=== PATIENT | female | born 1940 | race African-American/Black ===

== ENCOUNTER → 2016-08-18 | Outpatient (CLI) | payer OTHER, BC ==
[~2016-08-18] VITALS: Ht 167.6 cm; Wt 82.4 kg
[~2016-08-18] MED LIST: ADVAIR 100-501 EACH INH; ALEVE220 M1 PO; ALPRAZOLAM 0.50.5 MG PO; ASPIRIN325; BYSTOLIC 5 MG5 M1 PO; CRESTOR10 MG PO; DESYREL50 MG PO; DYRENIUM100 MG PO; FENTANYL 1100 MCG/HR TP; FENTANYL 1100 MCG/HR TRANSDERM; FENTANYL PA50 MCG/HR TRANSDERM; GLUCOTROL XL10 MG PO; HYDROCODON-ACE1 EAC5 PO; HYDROCODON-ACE1 EAC7 PO; LANOXIN 0.250.25 M1 PO; LANTUS SC; METHADONE HCL 110 M1 PO; NORCO 10-325 T1 EACH PO; NOVOLOG MI100 UNIT/2 SQ; OPANA ER30 MG PO; OPANA10 MG PO; OXYCODONE-ACET1 EAC2 PO; OXYCODONE-ACET1 EACH PO; OXYCONTIN30 MG PO; OXYCONTIN40 MG PO; PERCOCET 5-3251 EACH PO; PLAVIX 75 MG TA75 MG PO; PRINZIDE 20-121 EACH PO; SINGULAIR 10 MG10 M1 PO; TOPROL XL50 MG PO; VENTOLIN HFA INH8 GM INH; VERAPAMIL HCL240 MG PO; VITAMIN D-32000 UNIT PO; ZOLOFT100 MG
--- NOTE | ~2016-08-18 | HPC ---
[facility] [address] [place] [address] PAIN MANAGEMENT CONSULTATION Name: SURESH MORALES Maggi Room #: EDGARDO WILMER Ragland#: [id number] Admission: 08/18/16 Attend Phys: Josue Caruso MD Discharge: Date of : 38 Report #: [id number] THIS REPORT FOR: //name// CC: Magan Caruso DATE OF SERVICE: 08/18/2016 Followup visit for low back pain with radiculopathy, right L2-L3 distribution, chronic low back pain. I am seeing the patient today back for medication renewal as well as an epidural injection. She was last seen in March. She is 2 months late for medication. Lots of questions asked today about where her medication reduction may have occurred in order to get her through 150 days with 90 days of medication. She is on fentanyl patches. Answers were really not entirely satisfactory. Her reports that patches may even come off a little bit early. Seems clear to me that the fentanyl patches are not being used as ordered. Otherwise, we would have seen her in June. I am going to reduce her medication by 50% today. I have also ordered urine drug analysis. She reports her pain is 10/10. I have cared for her for over 10 years. This is the first time that we had discrepancy in timing of dose. She is 76 now, claims that she is more forgetful. She and her live independently in their own home, they get out for meals and do other things, but I am concerned about these medication changes. The patient suffered chronically with depression and anxiety. She lost her child to cancer years back. She is on a polypharmacy regimen, which includes anxiolytics and antidepressants. We reviewed these medicines. She is also diabetic. MEDICATIONS: All medications were reviewed and reconciled in electronic medical record. PHYSICAL EXAMINATION: GENERAL: Her affect is pleasant, a little bit depressed. VITAL SIGNS: Blood pressure is 100/63, heart rate 65, respirations 16. BMI is 29.3. She is able to move from sitting to standing position, ambulates with a cane. She has limited range of motion of the lumbar spine. She has tenderness across the lumbosacral segment. She has pain that radiates in the right groin with straight leg raising. Pain follows in L2-L3 distribution. Previous x-rays have been reviewed from injections performed in March. It may be that injection was helpful, although I cannot get really good history about how helpful that may be one of the reasons that she did not use as much [facility] [address] [place] [address] PAIN MANAGEMENT CONSULTATION Name: SURESH MORALES Room #: REG CHASEPushpa Ragland#: [id number] Admission: 08/18/16 Attend Phys: Josue Caruso MD Discharge: Date of : 38 Report #: [id number] pain medication over the first several months. IMPRESSION: 1. Chronic low back pain with radiculopathy. 2. Insulin-dependent diabetes. 3. Anxiety and depression. 4. Management of high risk medication. PLAN: 1. I renewed her fentanyl patch at 50 mcg down from 100. I will see her back in 2 months. 2. Urine drug analysis. 3. Right L2-L3 transforaminal epidural injection under fluoroscopic guidance. PROCEDURE: She was taken to the fluoroscopic suite for procedure, placed prone, skin prepped with ChloraPrep. Skin anesthetized over the L2-L3 interspace. A 20-gauge Tuohy epidural needle advanced in the epidural space with loss of resistance. No blood or CSF aspirated. A 1 mL of Omnipaque injected. Excellent spread of dye observed in the epidural space followed by 3 mL of 0.5% lidocaine mixed with 80 mg triamcinolone. She tolerated the procedure well and was observed for 45 minutes and discharged. Followup visit planned in 2 months. By: [id number] Josue Caruso MD /nt
[2016-08-18 12:59] VITALS: BP 101/63
== END ==
LOC: PAIN 07:10
DX: M54.16 Radiculopathy, lumbar region (principal); E11.9 Type 2 diabetes mellitus without complications; F32.9 Major depressive disorder, single episode, unspecified; F41.9 Anxiety disorder, unspecified; Z87.891 Personal history of nicotine dependence

== ENCOUNTER → 2017-07-17 | Outpatient (CLI) | payer OTHER, BC ==
[~2017-07-17] VITALS: Ht 167.6 cm; Wt 82.4 kg
[~2017-07-17] MED LIST changes: +FENTANYL PATCH75 MCG TRANSDERM; +GABAPENTIN100 MG PO; +NEURONTIN 300300 M1 PO
--- NOTE | ~2017-07-17 | HPC ---
[facility] [place] [address] PAIN MANAGEMENT CONSULTATION Name: SURESH MORALES Maggi Room #: EDGARDO WILMER Ragland#: [id number] Admission: 07/17/17 Attend Phys: Josue Caruso MD Discharge: Date of : 38 Report #: [id number] THIS REPORT FOR: //name// CC: Magan Caruso DATE OF SERVICE: 07/17/2017 Followup visit for chronic back pain with radiculopathy. Followup visit for my longstanding patient, who is here today for renewal of pain medication. A buccal drug screen will be performed as it has not been performed in some time. She continues to score her pain high despite all of our efforts. She has had multiple injections, has even had a spinal cord stimulator. She is now on fentanyl 75 mcg and hydrocodone 10/325 3 times daily. Without these medications, I do not believe she will be able to function at all. Her pain impact scores continue to remain high. She scored her impact as 47/70 today and her obtainable functional goals are to be able to continue walking for exercise and doing housework. Review of PQRS requirements showed that she does have a history of osteoarthritis involving several joints. Medication helps with those conditions and also is aided by the medication that I provide her. Her BMI is 29.3 with vital signs of blood pressure 113/64, heart rate 73. She has not been on under treatment for hypertension. She uses a cane and is a fall risk due to dizziness. We have talked about being cautious getting up and down. She is on no blood thinners at this time. She is low risk for any sort of addiction by our risk assessment tool. IMPRESSION: 1. Chronic intractable low back pain with radiculopathy. 2. Management of high risk medications. PLAN: 1. Increase Duragesic to 75 mcg q. 72 hours. 2. Hydrocodone 10/325, 3 tablets daily. 3. Continue gabapentin 300 mg t.i.d. 4. Follow up in the Pain Management Clinic in 3 months. <ELECTRONICALLY SIGNED> By: Josue Caruso MD 08/14/17 1408 1623 10 Josue Caruso MD /nt
[2017-07-17 13:23] VITALS: BP 113/64
== END ==
LOC: PAIN 07:19
DX: M54.16 Radiculopathy, lumbar region (principal); Z79.899 Other long term (current) drug therapy

== ENCOUNTER → 2018-04-05 | Outpatient (CLI) | payer OTHER, BC ==
[~2018-04-05] VITALS: Ht 167.6 cm; Wt 78.6 kg
[~2018-04-05] MED LIST changes: +CELEBREX 200 M200 MG PO
--- NOTE | ~2018-04-05 | HPC ---
[facility] [place] [address] [place] [address] PAIN MANAGEMENT CONSULTATION Name: SURESH MORALES Maggi Room #: REG Pushpa MYuly.#: [id number] Admission: 04/05/18 Attend Phys: Josue Caruso MD Discharge: Date of : 39 Report #: [id number] THIS REPORT FOR: //name// CC: KENDRA Solano DO Physician staff Josue Caruso DATE OF SERVICE: 04/05/2018 Followup visit for chronic pain. Followup visit for the patient who continues to complain of daily pain in the range of 10/10. Her , always steadfast at her side, reports that she complains every day. The pain is lumbosacral without radiculopathy. She has had a number of treatments, injections, spinal cord stimulator and has been maintained on strong opioid medication along with some adjuvant medications for a number of years. We decided today to review those medicines, consider if there are any additions, subtractions or changes to make. All medications were reviewed and reconciled. PQRS reveals a blood pressure of 145/66, heart rate 72, respirations 16. Her BMI is 28.0. She does not use tobacco or alcohol. She does not have a blood thinner. She is on medication for elevated blood pressure. She has completed an opioid agreement and is at low risk for addiction. She uses her medications carefully and under terms of our agreement safeguarding it. She is not a fall risk and has not fallen over the course of the last 3 months, but she does need some help in standing. She does have osteoarthritis primarily in the shoulders, hips and knees. PAST MEDICAL HISTORY: Remarkable for lumbar surgery in 11/2003 and 2005, pacemaker placement, insulin-dependent diabetes, longstanding; GERD, depression, anxiety, sick sinus syndrome and coronary artery disease with stents. PHYSICAL EXAMINATION: She is pleasant, alert and oriented with mild depression. Blood pressure is noted. Weight is noted. She moves independently from sitting to standing position, walks with a waddling gait. She does not appear to be at risk of falling. She has limited range of motion in flexion, extension without complaints of pain. She has diffuse tenderness across the lumbosacral segment. It is bilateral. It ranges really from one sacroiliac joint to the other all the way across the lumbosacral region. 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 IMPRESSION: [facility] [address] [place] [address] PAIN MANAGEMENT CONSULTATION Name: SURESH MORALES Maggi Room #: REG CLI Obie#: [id number] Admission: 04/05/18 Attend Phys: Josue Caruso MD Discharge: Date of : 39 Report #: [id number] 1. Chronic intractable low back pain with symptomatic radiculopathy and lumbosacral pain. Her radiculopathy has recently been improved. 2. Management of high risk medication. PLAN: 1. Addition of celecoxib 200 mg once a day. Risks and benefits were reviewed. 2. Return if a caudal epidural injection some time before [place]. 3. Follow up in the pain clinic in 3 months for medication. Terms of our opioid agreement were reviewed. By: [id number] Josue Caruso MD /nt
[2018-04-05 14:39] VITALS: BP 145/66
== END ==
LOC: PAIN 14:06
DX: M54.16 Radiculopathy, lumbar region (principal); Z79.899 Other long term (current) drug therapy

== ENCOUNTER → 2018-05-03 | Outpatient (CLI) | payer OTHER, BC ==
[~2018-05-03] VITALS: Ht 167.6 cm; Wt 78.3 kg
[2018-05-03 14:04] VITALS: BP 141/65
--- NOTE | 2018-05-03 14:11 | NUR ---
Pain Clinic Assessment: 1. History of Osteoarthritis: YES History of Rheumatoid Arthritis: NO 2. Height: 5 ft. 6 in. 167.6 cm. Weight: 172.6 lb. oz. 78.291 kg. Patient's BMI: 27.9 3. Vital Signs: BP: 141/65 Pulse: 72 Resp: 16 Temp: 02 Sat: 97 ECG Mon: 4. Pain Intensity: 10 5. Fall Risk: Dizziness: N Needs help standing or walking: Y Fallen in the last 3 months: N Fall risk comments: 6. Patient on Blood Thinner: None 7. History of Hypertension: N 8. Opioid Therapy greater than 6 weeks: Y Opiate Contract Signed: 03/24/16 9. Risk Assessment Tool Provided: 1-LOW RISK 10. Functional Assessment Tool: 11. Recreational Drug Use: Never Drug Type: Tobacco Use: Former Smoker Tobacco Type: Amount or Packs/day: How Many Years: Alcohol Use: No Frequency: Quant:
--- NOTE | 2018-05-09 11:18 | HPC ---
[facility] [place] [address] [place] [address] PAIN MANAGEMENT CONSULTATION Name: SURESH MORALES Maggi Room #: REG WILMER Fraser.#: [id number] Admission: 05/03/18 Attend Phys: Josue Caruso MD Discharge: Date of : 39 Report #: [id number] THIS REPORT FOR: //name// CC: KENDRA FRAIRE Physician staff Josue Caruso DATE OF SERVICE: 05/03/2018 Followup visit for post-laminectomy syndrome, chronic low back pain with radiculopathy. The patient is here today for a caudal epidural injection. She was seen very recently on 04/05/2018 for an extended visit. We discussed other options for treatment. She has had 2 previous back surgeries in 2003 and 2005. She has a number of other comorbidities including coronary artery disease with stents, sick sinus syndrome, insulin-dependent diabetes and longstanding depression and anxiety. We have treated with medications, which are less and less effective. She reports that her pain continues to be severe, is mostly in the lumbosacral region without radiculopathy, but it is in the area of her previous surgeries. In the past, we have tried some caudal injections. We discussed that as an option for treatment at her last visit, but were unable to proceed with the injection without a preauthorization. I added some Celebrex for her regimen of medications and she is tolerating that so far, but pain continues to be fairly severe. She is grateful for the opportunity to try an epidural injection today. PQRS was reviewed less than 1 month ago. There have been no significant changes. PHYSICAL EXAMINATION: Her blood pressure is 141/65, heart rate 72, respirations 16. BMI 27. She needs some help standing and walking, but has not fallen in the last 3 months. She scores her pain as a 10/10. Pain is across the lumbosacral segment with localized tenderness. She has tenderness in both sacroiliac joints and denies numbness or weakness in the lower extremities at this time. IMPRESSION: Post-laminectomy syndrome with radiculopathy and lumbosacral pain. Some improvement in radiculopathy, but persistence of lumbosacral discomfort. PROCEDURE: Caudal epidural injection under fluoroscopic guidance. [facility] [address] [place] [address] PAIN MANAGEMENT CONSULTATION Name: SURESH MORALES Maggi Room #: [facility].#: [id number] Admission: 05/03/18 Attend Phys: Josue Caruso MD Discharge: Date of : 39 Report #: [id number] PROCEDURE: She was taken to fluoroscopic suite. She was placed prone. Skin was prepped with ChloraPrep. Skin was anesthetized over the sacral hiatus. Using biplanar fluoroscopic views, I gently advanced 22-guage spinal Tuohy epidural needle into the canal and a 1 mL of Omnipaque demonstrated an excellent epidurogram. It was then followed by 15 mL of 0.5% lidocaine mixed with 80 mg triamcinolone. She tolerated the procedure well, was observed for 45 minutes and discharged. She was told to watch carefully for her blood sugars may elevate over the next few days. Repeat injections will depend on her response to this injection. <ELECTRONICALLY SIGNED> By: Josue Caruso MD 05/09/18 1118 1133 2242 Josue Caruso MD /nt
== END | disposition home or self-care (01) ==
LOC: PAIN 07:47
DX: M54.17 Radiculopathy, lumbosacral region (principal); M96.1 Postlaminectomy syndrome, not elsewhere classified; G89.29 Other chronic pain; I25.10 Atherosclerotic heart disease of native coronary artery without angina pectoris; E11.9 Type 2 diabetes mellitus without complications; F32.9 Major depressive disorder, single episode, unspecified; F41.9 Anxiety disorder, unspecified; I49.5 Sick sinus syndrome; Z79.4 Long term (current) use of insulin; Z79.899 Other long term (current) drug therapy; Z98.890 Other specified postprocedural states; Z87.891 Personal history of nicotine dependence; Z79.82 Long term (current) use of aspirin; Z88.6 Allergy status to analgesic agent

== ENCOUNTER → 2018-06-21 | Outpatient (CLI) | payer OTHER, BC ==
[~2018-06-21] VITALS: Ht 167.6 cm; Wt 74.5 kg
[~2018-06-21] MED LIST changes: +ATORVASTATIN CA40 MG PO; -DESYREL50 MG PO; +HUMALOG100 UNIT/1 SUBQ; +LIPITOR10 MG PO; -NOVOLOG MI100 UNIT/2 SQ; +PACERONE 200 M200 M1 PO; +SERTRALINE HCL50 MG PO; +TRAZODONE HCL100 MG PO
[2018-06-21 15:06] VITALS: BP 152/64
--- NOTE | 2018-06-21 15:18 | NUR ---
Pain Clinic Assessment: 1. History of Osteoarthritis: YES History of Rheumatoid Arthritis: NO 2. Height: 5 ft. 6 in. 167.6 cm. Weight: 164.2 lb. oz. 74.481 kg. Patient's BMI: 26.5 3. Vital Signs: BP: 152/64 Pulse: 57 Resp: 16 Temp: 02 Sat: 95 ECG Mon: 4. Pain Intensity: 8-9 5. Fall Risk: Dizziness: N Needs help standing or walking: Y Fallen in the last 3 months: N Fall risk comments: 6. Patient on Blood Thinner: None 7. History of Hypertension: N 8. Opioid Therapy greater than 6 weeks: Y Opiate Contract Signed: 03/24/16 9. Risk Assessment Tool Provided: 1-LOW RISK 10. Functional Assessment Tool: 11. Recreational Drug Use: Never Drug Type: Tobacco Use: Former Smoker Tobacco Type: Amount or Packs/day: How Many Years: Alcohol Use: No Frequency: Quant:
--- NOTE | 2018-06-22 08:23 | HPC ---
[facility] [address] [place] [address] PAIN MANAGEMENT CONSULTATION Name: SURESH MORALES Maggi Room #: REG WILMER Ragland#: [id number] Admission: 06/21/18 Attend Phys: Irina Charles Discharge: Date of : 38 Report #: [id number] THIS REPORT FOR: //name// CC: Irina [facility] Physician staff DATE OF SERVICE: 06/21/2018 CHIEF COMPLAINT: Chronic back pain, lumbosacral pain without radiculopathy. HISTORY OF PRESENT ILLNESS: The patient returns to the pain clinic today for a refill of her medications. She tells me that she has been hospitalized at for an elevated blood sugar of over 1000. She passed out around 05/28/2018. Her found her and she was taken at and her blood sugar was 1000. She was admitted to ICU, intubated for several days, then went to the Step-Down Unit there for several days, they have changed significant amount of her medications and she was able to go home. She tells me that she is doing better. She has been off her fentanyl patches that we are giving her. They are working on decreasing her benzodiazepine that is prescribed by another doctor. She continues to take her hydrocodone 10/325. She tells me that she has tailbone, low back pain, rating at 8-9 today. It is worse when she is doing housework or lifting, worse actually at night also, but things have stabilized as far as her blood sugars and she feels like she is doing better than she was. She had a caudal injection in April from Dr. Josue Caruso and she found that to be helpful at that time. The patient's is present with her today for this visit and she would like a refill of her hydrocodone only. ALLERGIES: SHELLFISH AND CODEINE. CURRENT LIST OF MEDICATIONS: Hydrocodone 10/325 three times a day, Lipitor 10 mg at bedtime, Lipitor 40 mg at bedtime, amiodarone 200 mg daily, Ventolin inhaler as needed, Advair inhaler daily, Toprol 50 mg daily, Singulair 10 mg daily, Zoloft 50 mg daily, alprazolam 0.25 at bedtime, vitamin D3 daily, aspirin 325 mg daily, Lantus insulin 25 units at bedtime, Humalog 3 units before meals, trazodone 100 mg at bedtime. PQRS: 1. She has a history of osteoarthritis and denies rheumatoid arthritis. 2. Height is 5 feet 6 inches, weight is 164, BMI is 26.5. 3. Vital signs: Blood pressure 152/64, pulse is 57, respirations 16, oxygen sat is 95%. 4. Pain score is 8-9/10. 5. Fall risk: Denies dizziness, does not need help walking or standing, uses a cane. She has not fallen in the last 3 months. 6. Denies blood thinners. She takes medicines for hypertension. [address] [address] PAIN MANAGEMENT CONSULTATION Name: SURESH MORALES Maggi Room #: EDGARDO Ragland#: [id number] Admission: 06/21/18 Attend Phys: Irina Charles Discharge: Date of : 39 Report #: [id number] 7. Opioid therapy is greater than 6 weeks, therefore, an opioid signed contract is on the chart. 8. Risk assessment tool is low. Her functional assessment is 47/70. 9. Recreational drug use, she denies. She is a former smoker and does not drink alcohol. We did check the prescription monitoring system. The patient is filling appropriately from her medications. There is a recent drug screen on the chart as well. PHYSICAL EXAMINATION: GENERAL: This is a well-developed, well-nourished black female who appears her stated age. She is alert and orientated and her affect is appropriate. HEENT: Normocephalic, atraumatic. Extraocular eye muscles are intact. Mucous membranes are moist. Her hearing is adequate. MUSCULOSKELETAL: The patient moves independently from sitting to standing, does use a cane and walks with a slightly antalgic gait. She has tenderness across her lumbosacral area. Lower extremity muscle strength judged to be 5/5 in all major muscle groups. ASSESSMENT: 1. Chronic intractable low back pain with symptomatic lumbar radiculopathy. 2. Lumbosacral pain. 3. Management of high risk medications. We reviewed the fact that opiate medications are being used to provide analgesia adequate to support activities of daily living, not attempting to achieve a specific pain score on the 0-10 Visual Analog Scale. The current opiate medications are providing sufficient analgesia to allow the patient to participate in activities of daily living. The patient is not exhibiting any aberrant behavior suggestive of drug diversion. The patient is not having any adverse reactions to medications. The patient is not suffering from daytime somnolence or mental acuity changes. The patient is managing opiate-induced constipation with appropriate [id number] agents and dietary considerations. The patient was counseled on concern for caution with operating a motor vehicle while using opiate medications. A physical exam was performed and the patient's functional status was evaluated. All patients with back pain were advised against the bed rest greater than 4 days and were advised to return to normal activities. Pain score assessment was noted and the treatment plan was reviewed with the patient. All current medications, both prescribed and OTC were reviewed and reconciled on the electronic medical record. Tobacco screening was accomplished and smoking cessation was advised when indicated. BMI was noted and diet/exercise modification was recommended for all patients following outside normal parameters. I reviewed with the patient today their responsibilities to [facility] [address] [place] [address] PAIN MANAGEMENT CONSULTATION Name: SURESH MORALES Maggi Room #: REG Pushpa Ragland#: [id number] Admission: 06/21/18 Attend Phys: Irina Charles Discharge: Date of : 38 Report #: [id number] prescription medications, reviewed their responsibility to utilize medications only as prescribed by the physician. They are to seek and receive pain medications only from 1 physician group ( [facility]). They are to use 1 pharmacy and keep the clinic informed if they change pharmacies. Their responsibilities include making followup visits in a timely fashion and to avoid abrupt discontinuation of medication usage. Their responsibilities further include bringing their medications (bottles from the pharmacy with residual pills) to the visit for possible confirmation of pill counts and the patient understands it is their responsibility to submit to random drug screens to ensure both that the medications prescribed are present, and that no other controlled substances are present. All prescriptions provided today were generated electronically. PLAN: 1. We discussed treatment options today. The patient has been taken off her fentanyl patches as well as her Celebrex while she was in the hospital at recently and just continued her hydrocodone for pain. The patient would like a refill of that today. 2. We discussed the CDC guidelines and her morphine milliequivalent, she is at 30, far below the CDC guidelines. The patient's family was very interested in these numbers. I told the patient that she would be seen every 3 months. Scripts given today of hydrocodone , #90 to be released today, 4-week and 8-week. 3. The patient seen by Dr. Caruso also today and care given today under the collaboration of Dr. Josue Caruso. <ELECTRONICALLY SIGNED> By: Irina Charles 06/22/18 0823 1553 2151 Irina Charles /nt
== END ==
LOC: PAIN 07:12
DX: M54.16 Radiculopathy, lumbar region (principal); Z88.5 Allergy status to narcotic agent; Z91.013 Allergy to seafood; Z79.899 Other long term (current) drug therapy; Z79.891 Long term (current) use of opiate analgesic

== ENCOUNTER → 2018-09-13 | Outpatient (CLI) | payer OTHER, BC ==
[~2018-09-13] VITALS: Ht 167.6 cm; Wt 73.2 kg
[~2018-09-13] MED LIST changes: +ALPRAZOLAM 0.0.25 MG PO; +DURAGESIC1 EAC4 TRANSDERM; +DURAGESIC1 EAC5 TRANSDERM
--- NOTE | ~2018-09-13 | HPC ---
[facility] [place] [address] PAIN MANAGEMENT CONSULTATION Name: SURESH MORALES Room #: REG [facility] M..#: [id number] Admission: 09/13/18 ������������������ Attend Phys: Josue Caruso MD Discharge: ������������������ Date of : 38 Report #: [id number] THIS REPORT FOR: //name// CC: Dr. Russ FRAIRE Physician staff Josue Caruso DATE OF SERVICE: 09/13/2018 A 25-minute followup visit for strategies and management of chronic intractable low back pain with radiculopathy. The patient returns to the pain clinic today with her and her son. We spent about 25 minutes today strategizing, trying to come up with a good plan to help her manage her chronic pain. When she went to the hospital at with a high blood sugar over 1000 and was placed on a ventilator, they took her off her fentanyl patch. Her pain control has never quite been as good as it was at that time. They also took her off alprazolam and she is no longer sleeping well. These are contributing I think to her ongoing severe pain. She scores it as a 10/10. She really cannot do much at all around the house. She is spending a lot of time, lying down throughout the day and we would like to find something to do to provide better relief for her. PHYSICAL EXAMINATION: Today, she is pleasant, alert and oriented, without signs of overmedication. Her blood pressure 117/67, heart rate 55 and respirations 16. Her BMI is 26.1. She can move easily from sitting to standing position, but walks with a very slow unstable gait. She would be a fall risk. She has pain with forward flexion and extension of the spine. She has rotational pain as well. There is tenderness across the lumbosacral segment, a scar from previous spinal cord stimulator placement. There is straight leg raising discomfort on the right and that follows all the way down the L5-S1 distribution. Sensation is intact. She has generalized weakness throughout the lower extremities. She denies use of tobacco or alcohol. She is on no blood thinning medications. She is treated for hypertension. All medications were reviewed and reconciled. IMPRESSION: 1. Chronic low back pain with radiculopathy. 2. Management of high risk medications. PLAN: 1. I am going to reinitiate the fentanyl patch starting at 25 mcg and if this [address] [address] PAIN MANAGEMENT CONSULTATION Name: SURESH MORALES Maggi Room #: REG [facility] Ragland#: [id number] Admission: 09/13/18 ������������������ Attend Phys: Josue Caruso MD Discharge: ������������������ Date of : 38 Report #: [id number] is satisfactory she will stick with that, otherwise, I have given her prescriptions to increase back up to 50, this is still lower than her previous patch at 75 mcg per hour. 2. Continue with hydrocodone 10/325 one tablet 3-4 times daily for breakthrough pain. 3. Reinitiate alprazolam 0.25 mg at bedtime to help her sleep. We discussed the interaction between benzodiazepines and opioids and as long she carefully uses this dose, I think she is adequately managed. 4. Consider sleep apnea, although her , Amadou says that she does not snore and she does not seem to have any of the symptoms consistent with sleep apnea. We discussed referral if necessary. Medications were provided for her. We will consider also an epidural injection in the future for lumbar radiculopathy, which has provided some additional relief. She may be a candidate for an intrathecal pump in the future. We have discussed that as well. ��������������������������������������������� ���������������������������������������� By: ��������������������������������������������� 1807 0928 Josue Caruso MD /nt
[2018-09-13 14:13] VITALS: BP 117/67
--- NOTE | 2018-09-13 14:23 | NUR ---
Pain Clinic Assessment: 1. History of Osteoarthritis: YES History of Rheumatoid Arthritis: NO 2. Height: 5 ft. 6 in. 167.6 cm. Weight: 161.4 lb. oz. 73.211 kg. Patient's BMI: 26.1 3. Vital Signs: BP: 117/67 Pulse: 55 Resp: 16 Temp: 02 Sat: 98 ECG Mon: 4. Pain Intensity: 10 5. Fall Risk: Dizziness: Y Needs help standing or walking: Y Fallen in the last 3 months: N Fall risk comments: 6. Patient on Blood Thinner: None 7. History of Hypertension: N 8. Opioid Therapy greater than 6 weeks: Y Opiate Contract Signed: 03/24/16 9. Risk Assessment Tool Provided: 1-LOW RISK 10. Functional Assessment Tool: 11. Recreational Drug Use: Never Drug Type: Tobacco Use: Former Smoker Tobacco Type: Amount or Packs/day: How Many Years: Alcohol Use: No Frequency: Quant:
== END ==
LOC: PAIN 06:55
DX: M54.16 Radiculopathy, lumbar region (principal); G89.4 Chronic pain syndrome; Z79.899 Other long term (current) drug therapy

== ENCOUNTER → 2019-01-14 | Outpatient (CLI) | payer OTHER, BC ==
[~2019-01-14] VITALS: Ht 167.6 cm; Wt 68.5 kg
[~2019-01-14] MED LIST changes: +METHADONE HCL5 MG PO; +SYNTHROID50 MCG PO
--- NOTE | ~2019-01-14 | HPC ---
[facility] [address] [place] [address] PAIN MANAGEMENT CONSULTATION Name: SURESH MORALES Room #: REG [facility] Evelio.#: [id number] Admission: 01/14/19 ������������������ Attend Phys: Josue Caruso MD Discharge: ������������������ Date of : 39 Report #: [id number] THIS REPORT FOR: //name// CC: PILI Solano Physician staff Josue Caruso DATE OF SERVICE: 01/14/2019 Followup visit for chronic severe low back pain with radiculopathy. The patient returns to pain clinic today and continues to complain of bitter pain as a 10/10. She has lost weight. She is depressed. Her Ed is now on dialysis. It is one of the first appointments I have seen her at, when he is not here. She is here today with her daughter. She is looking for anything to help. She has had multiple previous back surgeries, has insulin-dependent diabetes. She has been hospitalized for severe lack of control of her diabetes. She has asthma, bronchitis, anxiety disorder and coronary artery disease, status post stent placement. Multiple comorbidities affect her. She has a pacemaker placed in 1991. It is currently pacing fulltime. PQRS: 1. Positive for osteoarthritis and particularly spondylosis of the lumbar spine and also pain in the lower extremities. 2. BMI of 24.4. 3. Vital signs: Blood pressure 113/50, heart rate 52, respirations 16. 4. Pain intensity 10/10. 5. She is a fall risk due to weakness and weight loss. 6. No blood thinner medications. 7. No history of hypertension. 8. She is on an opioid agreement signed in 2016. 9. She has completed an opioid risk score at 1. 10. Functional assessment score is 47/70 suggesting significant impact of pain on her day-to-day activities. 11. She denies use of tobacco and alcohol. PHYSICAL EXAMINATION: VITAL SIGNS: As noted above. She is a pleasant female, depressed of affect. She can move independently from sitting to standing position, but walks with antalgic features. CHEST: Clear. CARDIAC: Rhythm is regular. [facility] [address] [place] [address] PAIN MANAGEMENT CONSULTATION Name: KINGSURESH Tay Room #: REG [facility] Evelio.#: [id number] Admission: 01/14/19 ������������������ Attend Phys: Josue Caruso MD Discharge: ������������������ Date of : 39 Report #: [id number] MUSCULOSKELETAL: Examination of the spine reveals tenderness across the lumbosacral segment. Pain radiates in the low back and down into the right leg with straight leg raising discomfort. IMPRESSION: 1. Chronic low back pain with radiculopathy. 2. Management of high-risk medications under terms of an opioid agreement. 3. Combination of baseline breakthrough medication and low-dose alprazolam which is chronic and use of this proven to be safe for her. RECOMMENDATION: Opioid rotation. She has been on fentanyl patch for a quite some time. I am going to transition her to methadone 2.5 mg 2-3 times daily, gradually increasing from 2.5 mg daily up to 15 mg over the course of 6-10 days. Instructions were given to the patient and daughter to stop at the lowest effective dose. We discussed methadone as the unique opioid with good pain relieving benefits. I did get an electrocardiogram to make sure that there is nothing that would cause concern with prolonged QT interval, but she already is being paced fulltime. Followup visit is planned by phone. If she is doing well on the methadone, I will prescribe additional baseline prescription for her at the appropriate dose. Her daughter will call back to the pain clinic in 1 week. ��������������������������������������������� ���������������������������������������� By: ��������������������������������������������� 1815 0419 Josue Caruso MD /nt
[2019-01-14 12:51] VITALS: BP 113/50
--- NOTE | 2019-01-14 12:54 | NUR ---
Pain Clinic Assessment: 1. History of Osteoarthritis: YES History of Rheumatoid Arthritis: NO 2. Height: 5 ft. 6 in. 167.6 cm. Weight: 151.0 lb. oz. 68.493 kg. Patient's BMI: 24.4 3. Vital Signs: BP: 113/50 Pulse: 52 Resp: 16 Temp: 02 Sat: 94 ECG Mon: 4. Pain Intensity: 10 5. Fall Risk: Dizziness: N Needs help standing or walking: N Fallen in the last 3 months: N Fall risk comments: 6. Patient on Blood Thinner: None 7. History of Hypertension: N 8. Opioid Therapy greater than 6 weeks: Y Opiate Contract Signed: 03/24/16 9. Risk Assessment Tool Provided: 1-LOW RISK 10. Functional Assessment Tool: 11. Recreational Drug Use: Never Drug Type: Tobacco Use: Former Smoker Tobacco Type: Amount or Packs/day: How Many Years: Alcohol Use: No Frequency: Quant:
--- NOTE | 2019-01-15 07:51 | EKG ---
[address] [employer] [address] ELECTROCARDIOGRAM REPORT Name: SURESH MORALES Room #: REG [facility].#: [id number] ������������������ Admission: 01/14/19 ������������������ Attend Phys: Josue Caruso MD Discharge: ������������������ Date of : 39 Report #: [id number] ����������������������������������������������������������������� [id number] THIS REPORT FOR: //name// [facility] Test Date: 2019-01-14 Test Time: 13:34:18 Pat Name: SURESH MORALES Department: Room: Gender: F Rail Engineer: Reji VILLAVICENCIO : 1940 Requested By: Josue Caruso Order Number: [id number] MD: Santosh Gomez Measurements Intervals [place] Rate: 55 P: [place]: 200 QRS: -51 QRSD: 105 T: -19 QT: 476 QTc: 456 Interpretive Statements Atrial-paced rhythm Left anterior fascicular block Borderline T abnormalities, inferior leads Compared to ECG 11/15/2005 13:03:22 Atrial pacing is now present Nonspecific T wave abnormality is no longer present Electronically Signed On 01-15-2019 7:50:47 CDT by Santosh Gomez [email or web address] ��������������������������������������������� <ELECTRONICALLY SIGNED> ���������������������������������������� By: Santosh Gomez MD, [facility] ��������������������������������������������� 01/15/19 0750 1334 1334 Santosh Gomez MD, [facility] /EPI
== END | disposition home or self-care (01) ==
LOC: PAIN 10-04 13:34
DX: M47.26 Other spondylosis with radiculopathy, lumbar region (principal); G89.29 Other chronic pain; E11.9 Type 2 diabetes mellitus without complications; M19.90 Unspecified osteoarthritis, unspecified site; Z79.4 Long term (current) use of insulin; Z95.5 Presence of coronary angioplasty implant and graft

== ENCOUNTER → 2019-04-01 | Outpatient (CLI) | payer OTHER, BC ==
[~2019-04-01] VITALS: Ht 167.6 cm; Wt 69.2 kg
[~2019-04-01] MED LIST changes: +TRAMADOL 50 MG50 MG PO
[2019-04-01 14:12] VITALS: BP 121/69
--- NOTE | 2019-04-01 14:31 | NUR ---
Pain Clinic Assessment: 1. History of Osteoarthritis: Left Lower Extremity Left Upper Extremity Right Lower Extremity Right Upper Extremity History of Rheumatoid Arthritis: NO 2. Height: 5 ft. 6 in. 167.6 cm. Weight: 152.6 lb. oz. 69.219 kg. Patient's BMI: 24.6 3. Vital Signs: BP: 121/69 Pulse: 56 Resp: 16 Temp: 02 Sat: 100 ECG Mon: 4. Pain Intensity: 8 5. Fall Risk: Dizziness: Y Needs help standing or walking: Y Fallen in the last 3 months: Y Fall risk comments: 6. Patient on Blood Thinner: None 7. History of Hypertension: N 8. Opioid Therapy greater than 6 weeks: Y Opiate Contract Signed: 03/24/16 9. Risk Assessment Tool Provided: 1-LOW RISK 10. Functional Assessment Tool: 11. Recreational Drug Use: Never Drug Type: Tobacco Use: Former Smoker Tobacco Type: Cigarettes Amount or Packs/day: 1 How Many Years: 25 Alcohol Use: No Frequency: Quant:
== END ==
LOC: PAIN 06:53
DX: M54.16 Radiculopathy, lumbar region (principal); Z79.899 Other long term (current) drug therapy; Z88.8 Allergy status to other drugs, medicaments and biological substances

== ENCOUNTER → 2019-07-22 | Outpatient (CLI) | payer OTHER, BC ==
[~2019-07-22] VITALS: Ht 167.6 cm; Wt 70.9 kg
[~2019-07-22] MED LIST changes: +ASPIR 8181 MG PO; -ASPIRIN325; +BUTRANS1 EACH INTRADERM; +MUCINEX FAST-M1 EAC5 PO
--- NOTE | ~2019-07-22 | HPC ---
[facility] [address] [place] [address] PAIN MANAGEMENT CONSULTATION Name: SURESH MORALES Room #: REG [facility] RanjanGustavo.#: [id number] Admission: 07/22/19 Attend Phys: Josue Caruso MD Discharge: Date of : 39 Report #: [id number] THIS REPORT FOR: cc: PILI VALLECILLO MD Physician not on staff Josue Caruso MD ~ CC: PILI GANDHI MD Physician staff Josue Caruso DATE OF SERVICE: 07/22/2019 The patient returns to Pain Clinic today in followup to discuss further medication management of her intractable pain. I have taken care of the patient now for nearly 20+ years. She has had very challenging chronic pain. We have tried a number of things including multiple medications, injections and even a spinal cord stimulator trial followed by implant. Today, she reports that her pain is mostly around her tailbone. She describes mechanical pain of spondylosis. She has tried hydrocodone, methadone, fentanyl patches and has gotten some benefit from the use of an intermittent dose of low dose alprazolam. We discussed other pain medication options. Multiple classes of medications were reviewed including nonsteroidal anti-inflammatory drugs, muscle relaxants, antidepressants, all of which she has used in the past. Pain is severe, mostly with standing. She can stand at the counter long enough to make herself a sandwich. She has to do some sitting. She has her daughter who is helpful to her and lives close by. Her has been very ill with a blood dyscrasia. PQRS: Positive for significant osteoarthritis of multiple joints including all of the upper extremity and lower extremity larger joints. Her BMI is 25.2, blood pressure 142/70, heart rate 63, respirations 16, O2 sat 100, pain intensity 6-7/10. She needs help walking and standing. She uses a cane, but has not fallen in the last 3 months. She denies use of blood thinners and is not currently taking antihypertensives. I have her on an opioid agreement, which has been re-signed on several occasions, most recently 3 years ago. She is considered low risk by the opioid risk tool for addiction. Functional assessment score is 47 suggesting high impact of her pain on day-to-day activities. She denies use of tobacco and alcohol. PHYSICAL EXAMINATION: [facility] [address] [place] [address] PAIN MANAGEMENT CONSULTATION Name: SURESH MORALES Room #: REG [facility] Evelio.#: [id number] Admission: 07/22/19 Attend Phys: Josue Caruso MD Discharge: Date of : 39 Report #: [id number] GENERAL: She is pleasant, alert and oriented with no signs of anxiety, depression or overmedication. She actually seems fairly clear headed today and her pain seems to be less bothersome than I have seen in the past. She can independently move from a standing position, but walks carefully with antalgic features to her gait. CHEST: Reveals some coarse expiratory wheezing. She has an ongoing cold. She is a little bit fearful of the virus concerns, but has had this now for several weeks. She does not have fever. CARDIAC: Rhythm is regular with no audible murmur. No arrhythmias. MUSCULOSKELETAL: Back reveals tenderness across the lumbosacral segment, mostly down around the sacrum. Sacroiliac joints are nontender. Straight leg raising is negative as well. IMPRESSION: Chronic low back pain with spondylosis. PLAN: We will try Butrans 5 mcg patch. If that works well, we can continue it. She is to continue all her other medications. We discussed the use of the medication, side effects, risks and benefits. She did have a trial of Suboxone, which was ineffective. Hopefully, the slow release buprenorphine will be better tolerated and provide better relief. By: 1437 1451 Josue Caruso MD /nt
[2019-07-22 13:07] VITALS: BP 142/70
--- NOTE | 2019-07-22 13:33 | NUR ---
Pain Clinic Assessment: 1. History of Osteoarthritis: Left Lower Extremity Left Upper Extremity Right Lower Extremity Right Upper Extremity History of Rheumatoid Arthritis: Not Applicable 2. Height: 5 ft. 6 in. 167.6 cm. Weight: 156.2 lb. oz. 70.852 kg. Patient's BMI: 25.2 3. Vital Signs: BP: 142/70 Pulse: 63 Resp: 16 Temp: 02 Sat: 100 ECG Mon: 4. Pain Intensity: 6-7 5. Fall Risk: Dizziness: N Needs help standing or walking: Y Fallen in the last 3 months: N Fall risk comments: 6. Patient on Blood Thinner: None 7. History of Hypertension: N 8. Opioid Therapy greater than 6 weeks: Y Opiate Contract Signed: 03/24/16 9. Risk Assessment Tool Provided: 1-LOW RISK 10. Functional Assessment Tool: 11. Recreational Drug Use: Never Drug Type: Tobacco Use: Former Smoker Tobacco Type: Amount or Packs/day: How Many Years: Alcohol Use: No Frequency: Quant:
== END ==
LOC: PAIN 05-13 06:56
DX: M47.816 Spondylosis without myelopathy or radiculopathy, lumbar region (principal)

== ENCOUNTER → 2019-12-09 | Outpatient (CLI) | payer OTHER, BC ==
[~2019-12-09] VITALS: Ht 167.6 cm; Wt 71.5 kg
[~2019-12-09] MED LIST changes: -ATORVASTATIN CA40 MG PO; -LIPITOR10 MG PO; +LIPITOR40 MG PO; +LIPITOR80 MG PO
--- NOTE | ~2019-12-09 | HPC ---
[facility] [address] [place] [address] PAIN MANAGEMENT CONSULTATION Name: SURESH MORALES Room #: REG [facility] MFlaviaGustavo.#: [id number] Admission: 12/09/19 Attend Phys: Josue Caruso MD Discharge: Date of : 39 Report #: [id number] THIS REPORT FOR: cc: PILI GANDHI Physician not on staff Josue Caruso MD ~ CC: PILI GANDHI MD Physician staff Josue Caruso DATE OF SERVICE: 12/09/2019 Followup visit for chronic pain, multiple pain generators. The patient is here today with her daughter. She has been a patient of our clinic for probably close to 20 years and I have treated for a variety of different pain generators during that time. She has had a spinal cord stimulator placed and has been on an opioid agreement for many years. We have been off and on stronger opioid. She has been on fentanyl patches and oral opioids. At her last visit, we started her on buprenorphine with hopes that this might be helpful. We were unable to even titrate the dose as she did not tolerate it well. She returned to hydrocodone and her dose remains fairly modest. When she has pain medicine, she appreciates that, it provides relief for her, allows her to be more functional. She has been out of medicine now for a couple of weeks and I have agreed to renew her hydrocodone 10/325 three tablets daily. She complains mostly of shoulder pain today. Both shoulders hurt the left is worse than the right. She also has pain across her back, pain in her hips and legs, multiple joint arthropathy is well understood. PQRS REVIEW: Positive for the arthritis as described above the hips, shoulders, knees, ankles. She also has spondylosis. Her BMI is 25.4, blood pressure 125/53, pulse is 80, respirations 18, O2 sat 100, pain intensity is a 6-7/10. She fell 2 months ago, but it was a misstep, was not related to dizziness, lightheadedness nor to medication. She is on no blood thinners. She has no history of hypertension. She is on an opioid agreement, which has been signed on several occasions reviewed at each visit. She carefully safeguards her medicines with assistance of family. She is considered at low risk for addiction and takes her medications as prescribed. Functional assessment score is high at 47, suggesting dramatic impacts of her pain on just day-to-day activities. She continues to smoke a pack a day and has done so for 15 years. I have talked to her repeated visits about the impact of smoking on pain. PHYSICAL EXAMINATION: [facility] [address] [place] [address] PAIN MANAGEMENT CONSULTATION Name: SURESH MORALES Room #: REG [facility] Obie#: [id number] Admission: 12/09/19 Attend Phys: Josue Caruso MD Discharge: Date of : 39 Report #: [id number] VITAL SIGNS: As noted above. She is pleasant, alert and oriented. She talks awfully. She is mildly depressed. MUSCULOSKELETAL: Examination of the shoulders reveals decreased range of motion bilaterally, particularly with external rotation. She has difficulty with abduction. Right is also difficult for her, but the left is clearly more painful. She has mild crepitus. No redness, but there is mild tenderness. IMPRESSION: 1. Diffuse osteoarthritis. 2. Chronic low back pain, post-laminectomy. 3. Failure of spinal cord stimulation therapy. 4. Management of high risk medications. PLAN: 1. I renewed her medications for her electronically. Hydrocodone 10/325 one tablet 2-3 times daily. 2. Left shoulder injection with triamcinolone and bupivacaine. PROCEDURE: After informed consent, she was placed in the sitting position, skin was prepped with ChloraPrep. Skin was anesthetized and a 25-gauge 2-inch needle was advanced into the joint capsule. After negative aspiration, I injected 4 mL of 0.5% bupivacaine mixed with 40 mg of triamcinolone. She tolerated the procedure well and there were no complications. Pain was reduced slightly at discharge and a followup visit planned in 1-2 months. By: 1428 12 Josue Caruso MD /sandra
[2019-12-09 12:43] VITALS: BP 125/53
--- NOTE | 2019-12-09 12:48 | NUR ---
Pain Clinic Assessment: 1. History of Osteoarthritis: Left Lower Extremity Left Upper Extremity Right Lower Extremity Right Upper Extremity History of Rheumatoid Arthritis: Not Applicable 2. Height: 5 ft. 6 in. 167.6 cm. Weight: 157.6 lb. oz. 71.487 kg. Patient's BMI: 25.4 3. Vital Signs: BP: 125/53 Pulse: 80 Resp: 18 Temp: 02 Sat: 99 ECG Mon: 4. Pain Intensity: 6-7 5. Fall Risk: Dizziness: N Needs help standing or walking: Y Fallen in the last 3 months: Y Fall risk comments: FELL 2 MONTHS AGO 6. Patient on Blood Thinner: None 7. History of Hypertension: N 8. Opioid Therapy greater than 6 weeks: Y Opiate Contract Signed: 03/24/16 9. Risk Assessment Tool Provided: 1-LOW RISK 10. Functional Assessment Tool: 11. Recreational Drug Use: Never Drug Type: Tobacco Use: Former Smoker Tobacco Type: Cigarettes Amount or Packs/day: 1 How Many Years: 15 Alcohol Use: No Frequency: Quant:
== END | disposition home or self-care (01) ==
LOC: PAIN 06:50
PROVIDERS: ATTEND Anesthesiology Pain Medicine
DX: M25.512 Pain in left shoulder (principal); M25.511 Pain in right shoulder; M19.90 Unspecified osteoarthritis, unspecified site; M54.5 Low back pain; G89.29 Other chronic pain; M96.1 Postlaminectomy syndrome, not elsewhere classified; Z98.890 Other specified postprocedural states; Z87.891 Personal history of nicotine dependence; Z79.899 Other long term (current) drug therapy